=== PATIENT | female | born 1955 | race Two or more races ===

== ENCOUNTER 2016-10-03 23:05 | Inpatient (IN) | payer MEDICAID ==
[~2016-10-03] VITALS: Ht 157.5 cm; Wt 77.1 kg
[2016-10-03] MEDS ORDERED: ALBUTEROL SULFATE 2.5 MG/3 ML NEBU NEB ONE (23:45)
[2016-10-03] MEDS ORDERED: predniSONE 50 MG TABLET PO ONE (23:45)
[2016-10-03] MEDS ORDERED: IPRATROPIUM BROMIDE 0.5 MG/2.5 ML NEBU NEB ONE (23:45)
[2016-10-03] MEDS ORDERED: predniSONE 50 MG TABLET ONE (23:54)
[2016-10-03] MEDS ORDERED: ALBUTEROL SULFATE 2.5 MG/ 0.5 ML NEBU ONE (23:59)
[2016-10-03] MEDS ORDERED: IPRATROPIUM BROMIDE 0.5 MG/2.5 ML NEBU ONE (23:59)
[2016-10-04 01:34] LABS: ABG BASE EXCESS 4.2 mmol/L; ABG PCO2 49.8 mmHg (35.0-45.0); ABG PH 7.398 (7.350-7.450); ABG PO2 56.2 mmHg (75.0-100.0); ABG SITE RIGHT RADIAL; ABG TOTAL HEMOGLOBIN 13.4 G/dL (12.0-16.0); MetHb 0.5 % (0.0-1.5); O2Hb 89.5 % (94.0-97.0); VENT MODE Room Air
[2016-10-04 02:09] LABS: EOSINOPHILS # (AUTO) 0.2 K/uL (0.0-0.7); EOSINOPHILS % (AUTO) 1.4 % (0.0-7.0); HEMOGLOBIN 13.9 g/dL (10.9-14.3); LYMPHOCYTES # (AUTO) 0.8 K/uL (20.0-40.0); MEAN CORPUSCULAR HEMOGLOBIN 28.9 uug (24.7-32.8); MEAN CORPUSCULAR HGB CONC 36 g/dL (32.3-35.6); MONOCYTES # (AUTO) 0.4 K/uL (2.0-10.0); MONOCYTES % (AUTO) 3.3 % (0.0-11.0); NEUTROPHILS # (AUTO) 9.7 K/uL (1.8-8.9); NEUTROPHILS % (AUTO) 88.3 % (38.5-71.5); PLATELET COUNT (AUTO) 301 K/uL (179-408); RED BLOOD CELL COUNT(AUTO) 4.81 MIL/uL (3.63-4.92); RED CELL DISTRIBUTION WIDTH 13.5 % (12.3-17.7); WHITE BLOOD COUNT (AUTO) 11.1 K/uL (3.8-11.8)
[2016-10-04 02:14] LABS: CALCIUM 8.9 mg/dL (8.5-10.1); CREATININE 0.8 mg/dL (0.6-1.3)
[2016-10-04] MEDS ORDERED: IV NORMAL SALINE 250 ML IV ONE (02:45)
[2016-10-04] MEDS ORDERED: IOHEXOL 350 100 ML INFUS..BTL ONE (02:45)
[2016-10-04] MEDS ORDERED: IPRATROPIUM BROMIDE 0.5 MG/2.5 ML NEBU NEB ONE (04:00)
[2016-10-04] MEDS ORDERED: ALBUTEROL SULFATE 2.5 MG/3 ML NEBU NEB ONE (04:00)
[2016-10-04] MEDS: methylPREDNISolone SOD SUCC 125 MG/2 ML VIAL IV ONE (04:09)
[2016-10-04] MEDS ORDERED: methylPREDNISolone SOD SUCC 125 MG/2 ML VIAL ONE (04:09)
[2016-10-04] MEDS ORDERED: IPRATROPIUM BROMIDE 0.5 MG/2.5 ML NEBU ONE (04:14)
[2016-10-04] MEDS ORDERED: ALBUTEROL SULFATE 2.5 MG/ 0.5 ML NEBU ONE (04:15)
[2016-10-04] MEDS ORDERED: IV NS 1000 ML 1,000 ML IV PRN (05:16)
[2016-10-04] MEDS ORDERED: IPRATROPIUM BROMIDE 0.5 MG/2.5 ML NEBU NEB PRN (05:30)
[2016-10-04] MEDS ORDERED: MAGNESIUM HYDROXIDE 30 ML LIQUID UDC PO PRN (05:30)
[2016-10-04] MEDS ORDERED: ONDANSETRON 4 MG/2 ML VIAL IV PRN (05:30)
[2016-10-04] MEDS ORDERED: ALBUTEROL SULFATE 2.5 MG/ 0.5 ML NEBU NEB PRN (05:30)
[2016-10-04] MEDS ORDERED: ACETAMINOPHEN 325 MG TABLET PO PRN (05:30)
--- NOTE | 2016-10-04 06:23 | NUR ---
Pt. admitted to TELE, under care of Dr. Berry Belongs List completed
[2016-10-04 06:33] VITALS: BP 144/74
--- NOTE | 2016-10-04 06:42 | NUR ---
RECEIVED PT FROM ER BIB STAFF VIA SUSANNA, IN NO ACUTE DISTRESS. PT DIVEHI SPEAKING ONLY, A/OX4. DENIES ANY PAIN AT THIS TIME. DENIES CHEST PAIN, NAUSEA AND VOMITING. NO SOB REPORTED AT THIS TIME. AMBULATED TO BED, IN SLOW STEADY GAIT. VS STABLE. PLACED IN ROOM 204. MADE COMFORTABLE. ON TELE, SR ON THE MONITOR HR [id number]. WILL ENDORSE COMPLETION OF ADMISSION TO INCOMING NURSE.
[2016-10-04] MEDS: PANTOPRAZOLE SODIUM 40 MG TABLET.DR PO SCH (10:01)
[2016-10-04 10:30] LABS: BASOPHILS % (AUTO) 0.1 % (0.0-2.0); HEMATOCRIT 41.2 % (31.2-41.9); HEMOGLOBIN 14.1 g/dL (10.9-14.3); LYMPHOCYTES # (AUTO) 0.6 K/uL (20.0-40.0); LYMPHOCYTES % (AUTO) 5.3 % (20.5-51.5); MEAN CORPUSCULAR HEMOGLOBIN 27.8 uug (24.7-32.8); MEAN CORPUSCULAR HGB CONC 34 g/dL (32.3-35.6); MEAN CORPUSCULAR VOLUME 81.3 fL (75.5-95.3); MONOCYTES # (AUTO) 0.1 K/uL (2.0-10.0); MONOCYTES % (AUTO) 1.3 % (0.0-11.0); NEUTROPHILS # (AUTO) 9.8 K/uL (1.8-8.9); NEUTROPHILS % (AUTO) 93.3 % (38.5-71.5); PLATELET COUNT (AUTO) 307 K/uL (179-408); RED BLOOD CELL COUNT(AUTO) 5.07 MIL/uL (3.63-4.92); RED CELL DISTRIBUTION WIDTH 13.4 % (12.3-17.7); WHITE BLOOD COUNT (AUTO) 10.5 K/uL (3.8-11.8)
[2016-10-04 10:45] LABS: ALBUMIN 3.3 g/dL (3.4-5.0); BILIRUBIN,TOTAL 0.5 mg/dL (0.2-1.0); CALCIUM 8.9 mg/dL (8.5-10.1); MAGNESIUM 2.1 mg/dL (1.8-2.4); PHOSPHOROUS 2.7 mg/dL (2.5-4.9); POTASSIUM 3.5 mmol/L (3.5-5.1); TOTAL PROTEIN, SERUM 7.5 g/dL (6.4-8.2)
[2016-10-04 10:52] LABS: THYROID STIMULATING HORMONE 0.318 mIU/mL (0.358-3.740)
[2016-10-04] MEDS ORDERED: DEXTROSE 50% 50 ML DISP.SYRIN IV PRN (11:30)
[2016-10-04] MEDS ORDERED: METFORMIN HCL 500 MG TABLET PO SCH (11:30)
[2016-10-04 11:32] VITALS: BP 128/71
[2016-10-04] MEDS: BLOOD SUGAR DIAGNOSTIC 1 EACH STRIP VI SCH ×3 (12:40→21:45)
[2016-10-04] MEDS: GLIMEPIRIDE 2 MG TABLET PO SCH (12:46)
[2016-10-04] MEDS: INSULIN REGULAR, HUMAN 300 UNIT/3 ML VIAL SQ PRN ×3 (12:54→21:52)
[2016-10-04] MEDS: methylPREDNISolone SOD SUCC 40 MG/ML VIAL IV SCH ×2 (14:00→21:52)
[2016-10-04 14:01] LABS: *BILIRUBIN,URIN NEGATIVE (NEGATIVE); *BLOOD, URINE Trace-lysed (NEGATIVE); *COLOR,URINE YELLOW (YELLOW); *KETONES,URINE NEGATIVE (NEGATIVE); *PROTEIN,URINE NEGATIVE (NEGATIVE); *UROBILINOGEN,URINE 0.2 E.U./dl (NORMAL); LEUKOCYTE ESTERASE ,URINE NEGATIVE (NEGATIVE); NITRITE, URINE NEGATIVE (NEGATIVE)
[2016-10-04 14:33] LABS: UGLUCOSE 2+ (NEGATIVE)
[2016-10-04 14:34] LABS: *CLARITY,URINE SLIGHTLY HAZY (CLEAR)
[2016-10-04 14:37] LABS: SQUAMOUS EPITHELIAL CELL,UR MODERATE /HPF (NONE SEEN); WBC,URINE 0-3 /HPF (0-3)
[2016-10-04 15:39] VITALS: BP 137/67
[2016-10-04] MEDS ORDERED: ALBU8HFA4 PO (17:07)
[2016-10-04] MEDS ORDERED: BLOOD PRESSURE PILL (17:07)
[2016-10-04] MEDS ORDERED: ASPI-612 PO (17:07)
--- NOTE | 2016-10-04 17:22 | NUR ---
PATIENT TURKISH SPEAKING ONLY WITH TRANSLATION DONE SHE DENIES ANY SOB OR CHEST PAIN THIS SHIFT SHE IS SINUS RHYTHM ON MONITOR.PATIENT BEING MONITORED FOR BLOOD GLUCOSE AFTER SERUM CAME BACK 328 , ACCUCHECKS WITH SS COVERAGE OF REGULAR INSULIN NO S/S OF GLYCEMIC REACTION. at bedside with call light in reach and side rails up ti,tracy two
[2016-10-04 20:00] VITALS: BP 143/67
[2016-10-04 23:47] VITALS: BP 129/63
[2016-10-05 04:00] VITALS: BP 131/63
[2016-10-05 06:57] LABS: EOSINOPHILS # (AUTO) 0.1 K/uL (0.0-0.7); EOSINOPHILS % (AUTO) 0.8 % (0.0-7.0); HEMATOCRIT 39.6 % (31.2-41.9); HEMOGLOBIN 13.5 g/dL (10.9-14.3); LYMPHOCYTES # (AUTO) 0.9 K/uL (20.0-40.0); LYMPHOCYTES % (AUTO) 6.5 % (20.5-51.5); MEAN CORPUSCULAR HGB CONC 34 g/dL (32.3-35.6); MEAN CORPUSCULAR VOLUME 81.9 fL (75.5-95.3); MONOCYTES # (AUTO) 0.5 K/uL (2.0-10.0); MONOCYTES % (AUTO) 3.4 % (0.0-11.0); NEUTROPHILS # (AUTO) 12.7 K/uL (1.8-8.9); NEUTROPHILS % (AUTO) 89.3 % (38.5-71.5); PLATELET COUNT (AUTO) 358 K/uL (179-408); RED BLOOD CELL COUNT(AUTO) 4.83 MIL/uL (3.63-4.92); RED CELL DISTRIBUTION WIDTH 13.5 % (12.3-17.7); WHITE BLOOD COUNT (AUTO) 14.2 K/uL (3.8-11.8)
[2016-10-05] MEDS: methylPREDNISolone SOD SUCC 40 MG/ML VIAL IV SCH ×2 (07:04→21:00)
[2016-10-05] MEDS: PANTOPRAZOLE SODIUM 40 MG TABLET.DR PO SCH (07:04)
[2016-10-05] MEDS: BLOOD SUGAR DIAGNOSTIC 1 EACH STRIP VI SCH ×4 (07:05→20:38)
[2016-10-05 07:08] LABS: ALBUMIN 3.1 g/dL (3.4-5.0); BILIRUBIN,TOTAL 0.5 mg/dL (0.2-1.0); CALCIUM 8.9 mg/dL (8.5-10.1); CREATININE 0.8 mg/dL (0.6-1.3); MAGNESIUM 2.4 mg/dL (1.8-2.4); PHOSPHOROUS 4.2 mg/dL (2.5-4.9); POTASSIUM 3.4 mmol/L (3.5-5.1); TOTAL PROTEIN, SERUM 7.1 g/dL (6.4-8.2)
[2016-10-05] MEDS: INSULIN REGULAR, HUMAN 300 UNIT/3 ML VIAL SQ PRN ×3 (07:21→17:16)
[2016-10-05 07:24] LABS: THYROID STIMULATING HORMONE 0.221 mIU/mL (0.358-3.740)
--- NOTE | 2016-10-05 07:51 | NUR ---
PT SLEEPING WELL OVERNIGHT STILL SWEATY BUT FINGERSTICK IS 204MG/DL THIS AM. PAIN IN LOWER ABDOMEN TOLERABLE PER PT "COMES AND GO" PER DAUGHTER'S TRANSLATION VSS,AFEBRILE ,KEPT ON OXYGEN FOR SPO2 91% AT ROOM AIR AFTER BREATHING TREATMENT.NO ACUTE DISTRESS.CALL LIGHT AT REACHED.
[2016-10-05] MEDS: GLIMEPIRIDE 2 MG TABLET PO SCH (08:07)
[2016-10-05] MEDS ORDERED: DEXTROSE 50% 50 ML DISP.SYRIN IV PRN (09:45)
[2016-10-05] MEDS ORDERED: INSULIN REGULAR, HUMAN 300 UNITS/3 ML VIAL SQ PRN (09:45)
[2016-10-05] MEDS ORDERED: POTASSIUM CHLORIDE 20 MEQ TAB.PRT.SR PO ONE (09:45)
[2016-10-05 10:59] LABS: LYMPHOCYTES % (MANUAL) 7 % (20-40); MONOCYTES % (MANUAL) 2 % (2-10); NEUTROPHILS % (MANUAL) 91 % (42-75)
[2016-10-05 11:00] LABS: PLATELET ESTIMATE ADEQUATE
[2016-10-05 11:40] VITALS: BP 136/66
[2016-10-05 15:55] VITALS: BP 140/67
--- NOTE | 2016-10-05 18:29 | NUR ---
PATIENT IN BED RESTING. NO S/S OF DISTRESS NOTED. DENIED PAIN DURING MY SHIFT. AT THE BEDSIDE. GOOD APPETITE. BS CONTROLLED. NC 2L MAINTAINED. V/N WNL. SAFETY AND COMFORT PROVIDED BY STAFF. WILL CONTINUE MONITORING.
--- NOTE | 2016-10-05 20:00 | NUR ---
RECEIVED PATIENT AWAKE IN BED WITH FAMILY AT BEDSIDE. PATIENT IS A/O X4, CYMRAES SPEAKING BUT ABLE TO MAKE NEEDS KNOWN. PATIENT DENIES PAIN OR DISCOMFORT. NO RESP. DISTRESS NOTED. HEPLOCK INTACT AND PATENT, NOTED TO RIGHT FA. CALL LIGHT IN REACH. ALL NEEDS ATTENDED. WILL CONTINUE TO MONITOR.
[2016-10-05 20:27] VITALS: BP 138/78
--- NOTE | 2016-10-05 20:35 | NUR ---
PATIENT ON O2 2L NC SATING 95%. REMOVED AND WILL CHECK PATIENT ON RA.
[2016-10-05] MEDS: ATORVASTATIN 10 MG TABLET PO SCH (20:41)
--- NOTE | 2016-10-05 21:00 | NUR ---
PATIENT ON RA SATING 88-89%. PATIENT PLACED BACK ON O2 2L NC. WILL CONTINUE TO MONITOR.
[2016-10-05] MEDS: GUAIFENESIN/CODEINE 5 ML LIQUID UDC PO PRN (22:56)
[2016-10-05] MEDS ORDERED: GUAIFENESIN/CODEINE 5 ML LIQUID UDC ONE (23:04)
--- NOTE | 2016-10-05 23:05 | NUR ---
PATIENT GIVEN ROBITUSSIN AC 10ML PO PRN FOR COUGH.
[2016-10-06 05:06] VITALS: BP 137/74
[2016-10-06] MEDS: PANTOPRAZOLE SODIUM 40 MG TABLET.DR PO SCH (06:05)
[2016-10-06] MEDS: BLOOD SUGAR DIAGNOSTIC 1 EACH STRIP VI SCH ×4 (06:31→20:25)
--- NOTE | 2016-10-06 06:39 | NUR ---
PATIENT RESTING IN BED. SLEPT WELL THROUGHOUT THE NIGHT. VSS. NO RESP. DISTRESS NOTED. CONTINUED ON O2 2L NC. CALL LIGHT IN REACH. ALL NEEDS ATTENDED. WILL CONTINUE TO MONITOR.
[2016-10-06 07:47] LABS: EOSINOPHILS % (AUTO) 0.2 % (0.0-7.0); HEMATOCRIT 38.3 % (31.2-41.9); HEMOGLOBIN 13.2 g/dL (10.9-14.3); LYMPHOCYTES # (AUTO) 1.2 K/uL (20.0-40.0); LYMPHOCYTES % (AUTO) 7.8 % (20.5-51.5); MEAN CORPUSCULAR HEMOGLOBIN 28.2 uug (24.7-32.8); MEAN CORPUSCULAR HGB CONC 35 g/dL (32.3-35.6); MEAN CORPUSCULAR VOLUME 81.7 fL (75.5-95.3); MONOCYTES # (AUTO) 0.7 K/uL (2.0-10.0); MONOCYTES % (AUTO) 4.4 % (0.0-11.0); NEUTROPHILS % (AUTO) 87.6 % (38.5-71.5); PLATELET COUNT (AUTO) 318 K/uL (179-408); RED BLOOD CELL COUNT(AUTO) 4.69 MIL/uL (3.63-4.92); RED CELL DISTRIBUTION WIDTH 13.7 % (12.3-17.7); WHITE BLOOD COUNT (AUTO) 14.9 K/uL (3.8-11.8)
[2016-10-06] MEDS: INSULIN REGULAR, HUMAN 300 UNIT/3 ML VIAL SQ PRN ×3 (07:49→16:42)
[2016-10-06] MEDS: GLIMEPIRIDE 2 MG TABLET PO SCH (08:06)
[2016-10-06] MEDS: methylPREDNISolone SOD SUCC 40 MG/ML VIAL IV SCH ×2 (08:07→20:42)
[2016-10-06 08:57] LABS: BILIRUBIN,TOTAL 0.4 mg/dL (0.2-1.0); CALCIUM 8.5 mg/dL (8.5-10.1); CREATININE 0.8 mg/dL (0.6-1.3); MAGNESIUM 2.4 mg/dL (1.8-2.4); PHOSPHOROUS 4.2 mg/dL (2.5-4.9); POTASSIUM 4.2 mmol/L (3.5-5.1); TOTAL PROTEIN, SERUM 6.8 g/dL (6.4-8.2)
[2016-10-06] MEDS ORDERED: ALBUTEROL SULFATE 2.5 MG/ 0.5 ML NEBU NEB PRN (12:00)
[2016-10-06] MEDS ORDERED: IPRATROPIUM BROMIDE 0.5 MG/2.5 ML NEBU NEB PRN (12:00)
[2016-10-06] MEDS ORDERED: POTASSIUM CHLORIDE 20 MEQ TAB.PRT.SR PO ONE (12:15)
[2016-10-06] MEDS ORDERED: LEVOFLOXACIN 750MG/D5W 750 MG in PREMIXED 1 EACH IV SCH (14:00)
[2016-10-06] MEDS: IPRATROPIUM BROMIDE 0.5 MG/2.5 ML NEBU NEB SCH ×2 (14:43→19:26)
[2016-10-06] MEDS: ALBUTEROL SULFATE 2.5 MG/ 0.5 ML NEBU NEB SCH ×2 (14:43→19:26)
[2016-10-06 15:22] VITALS: BP 133/74
--- NOTE | 2016-10-06 18:14 | NUR ---
PATIENT BEEN IN BED RESTING DURING THE DAY, WATCHING TV. FAMILY MEMBERS AT THE BEDSIDE. NO S/S OF DISTRESS NOTED. DENIED PAIN. O2 SAT WITHOUT OXYGEN 90%-95% ON REST, ON ACTIVITY O2 SAT DROPPED TO 85, ASYMPTOMATIC. DR. OATES AND ADDIS FRANKEL AWARE. PATIENT STAYING ONE MORE NIGHT FOR MONITORING. PATIENT HAVE BEEN HAVING BREATHING TREATMENT, STATING THAT HELPS HER WITH THE COUGH AND BREATHING. BS CONTROLLED. SPUTUM SPECIMEN COLLECTED AND SENT TO LAB. SAFETY AND COMFORT PROVIDED BY STAFF. WILL CONTINUE MONITORING.
[2016-10-06 19:00] VITALS: BP 153/85
[2016-10-06] MEDS: GUAIFENESIN/CODEINE 5 ML LIQUID UDC PO PRN (20:25)
[2016-10-06] MEDS: ATORVASTATIN 10 MG TABLET PO SCH (20:25)
--- NOTE | 2016-10-06 20:25 | NUR ---
PATIENT AWAKE IN BED. A/O X4. KINYARWANDA SPEAKING BUT ABLE TO MAKE NEEDS KNOWN. PATIENT ASKING FOR COUGH MEDICINE. PATIENT GIVEN ROBITUSSIN AC 10ML PO PRN FOR COUGH. VSS. ON RA SATING 93%. DENIES ANY SOB. CALL LIGHT IN REACH. ALL NEEDS ATTENDED. WILL CONTINUE TO MONITOR .
[2016-10-07] MEDS: ALBUTEROL SULFATE 2.5 MG/ 0.5 ML NEBU NEB SCH ×3 (00:44→13:47)
[2016-10-07] MEDS: IPRATROPIUM BROMIDE 0.5 MG/2.5 ML NEBU NEB SCH ×3 (00:44→13:47)
[2016-10-07 04:00] VITALS: BP 143/74
--- NOTE | 2016-10-07 06:00 | NUR ---
PATIENT AWAKE IN BED. SLEPT WELL THROUGHOUT THE NIGHT. VSS. PATIENT DENIES OR DISCOMFORT. VSS. CALL LIGHT IN REACH. ALL NEEDS ATTENDED. WILL CONTINUE TO MONITOR.
[2016-10-07] MEDS: PANTOPRAZOLE SODIUM 40 MG TABLET.DR PO SCH (06:28)
[2016-10-07] MEDS: BLOOD SUGAR DIAGNOSTIC 1 EACH STRIP VI SCH ×2 (06:33→12:07)
[2016-10-07 06:59] LABS: ALBUMIN 2.9 g/dL (3.4-5.0); BILIRUBIN,TOTAL 0.4 mg/dL (0.2-1.0); CALCIUM 8.6 mg/dL (8.5-10.1); CREATININE 0.7 mg/dL (0.6-1.3); MAGNESIUM 2.4 mg/dL (1.8-2.4); PHOSPHOROUS 3.9 mg/dL (2.5-4.9); POTASSIUM 4.4 mmol/L (3.5-5.1); TOTAL PROTEIN, SERUM 6.7 g/dL (6.4-8.2)
[2016-10-07 07:14] LABS: EOSINOPHILS % (AUTO) 0.3 % (0.0-7.0); HEMATOCRIT 39.2 % (31.2-41.9); HEMOGLOBIN 13.5 g/dL (10.9-14.3); LYMPHOCYTES # (AUTO) 1.1 K/uL (20.0-40.0); LYMPHOCYTES % (AUTO) 7.7 % (20.5-51.5); MEAN CORPUSCULAR HEMOGLOBIN 28.3 uug (24.7-32.8); MEAN CORPUSCULAR HGB CONC 34 g/dL (32.3-35.6); MEAN CORPUSCULAR VOLUME 82.2 fL (75.5-95.3); MONOCYTES # (AUTO) 0.4 K/uL (2.0-10.0); NEUTROPHILS # (AUTO) 12.6 K/uL (1.8-8.9); PLATELET COUNT (AUTO) 339 K/uL (179-408); RED BLOOD CELL COUNT(AUTO) 4.77 MIL/uL (3.63-4.92); RED CELL DISTRIBUTION WIDTH 13.6 % (12.3-17.7); WHITE BLOOD COUNT (AUTO) 14.1 K/uL (3.8-11.8)
[2016-10-07] MEDS: methylPREDNISolone SOD SUCC 40 MG/ML VIAL IV SCH (08:12)
[2016-10-07] MEDS: GLIMEPIRIDE 2 MG TABLET PO SCH (08:12)
[2016-10-07] MEDS: INSULIN REGULAR, HUMAN 300 UNIT/3 ML VIAL SQ PRN ×2 (08:14→12:09)
[2016-10-07 08:41] LABS: LYMPHOCYTES % (MANUAL) 12 % (20-40); MONOCYTES % (MANUAL) 1 % (2-10); NEUTROPHILS % (MANUAL) 78 % (42-75)
[2016-10-07 08:42] LABS: BAND % (MANUAL) 9 % (0-10)
[2016-10-07 08:43] LABS: PLATELET ESTIMATE ADEQUATE
[2016-10-07] MEDS ORDERED: AMLODIPINE 5 MG TABLET PO SCH (10:00)
[2016-10-07 11:45] VITALS: BP 142/68
[2016-10-07] MEDS ORDERED: LEVOFLOXACIN 750 MG TABLET PO SCH (11:45)
[2016-10-07] MEDS ORDERED: FLUTICASONE/SALMETEROL 250/50 INHALER INH SCH (11:45)
[2016-10-07] MEDS ORDERED: Prednisone PO ×2 (11:57)
[2016-10-07] MEDS ORDERED: GLIM2TAB PO (11:57)
[2016-10-07] MEDS ORDERED: FLUT1DIS28 INH (11:57)
[2016-10-07] MEDS ORDERED: ALBU2.5V13 NEB ×2 (11:57)
[2016-10-07] MEDS ORDERED: ATOR10TA PO (11:57)
[2016-10-07] MEDS ORDERED: PRED-170 PO (11:57)
[2016-10-07] MEDS ORDERED: LEVO750T21 PO (11:57)
[2016-10-07] MEDS ORDERED: AMLO5TAB2 PO (11:57)
[2016-10-07] MEDS ORDERED: GUAI5SYR4 PO (11:57)
[2016-10-07] MEDS ORDERED: Blood Sugar Diagnostic VI (11:57)
[2016-10-07] MEDS ORDERED: IPRA0.2S6 NEB ×2 (11:57)
--- NOTE | 2016-10-07 12:55 | NUR ---
The patient will be discharged today back home [[id number] [facility] [address], [place] [address]] per Glenna Portillo NP. She is in agreement with her discharge plan and arranged for her daughters to pick her up via private car. Brittany Hernandez CNA provided translation for the patient. This upper stitcher provided the patient with drug discount cards to help with medication coverage. Her RN, [place] is aware of her discharge plan.
--- NOTE | 2016-10-07 14:00 | NUR ---
Discharge instructions given to pt by using tire center manager. Discussed new medications it purpose and side effects. Diabetic education given to pt re: finger stick (pt aware of alternating sites and not to poke middle of finger but its sides) s/s of hyperglycemia and hypoglycemia, purpose of having good bs and consequences on an uncontrolled bs, and what to eat for diabetic pts. Pt very active on listening and verbalized understanding. Pt denies further education from pharmacist. Prescription given to pt and daughter. Instructed to f/u with PMD within 1 week and bring their d/c instructions with the new list of medications that pt is taking - pt verbalized understanding. IV d/c. Gave [facility]N tx per pt request prior to d/c. Pt is in o acute distress upon discharge. Pt to f/u with pmd re: vaccinations PNM and flu
[2016-10-08] MEDS ORDERED: predniSONE 20 MG TABLET PO SCH (08:00)
[2016-10-11] MEDS ORDERED: predniSONE 10 MG TABLET PO SCH (09:00)
[2016-10-13] MEDS ORDERED: predniSONE 5 MG TABLET PO SCH (09:00)
== END 2016-10-07 14:00 | disposition home or self-care (01) | DRG 141 ==
LOC: ER 23:14 → TELE 10-04 05:50 → MED 10-05 12:45
PROVIDERS: ADMIT Nurse Practitioner Acute Care; ATTEND Internal Medicine
DX: J45.901 Unspecified asthma with (acute) exacerbation (principal); J96.01 Acute respiratory failure with hypoxia; J84.10 Pulmonary fibrosis, unspecified; I11.9 Hypertensive heart disease without heart failure; E11.65 Type 2 diabetes mellitus with hyperglycemia; N39.0 Urinary tract infection, site not specified; E87.6 Hypokalemia; E78.5 Hyperlipidemia, unspecified; E66.9 Obesity, unspecified; Z68.31 Body mass index [BMI] 31.0-31.9, adult; E88.09 Other disorders of plasma-protein metabolism, not elsewhere classified; T38.0X5A Adverse effect of glucocorticoids and synthetic analogues, initial encounter; Y92.89 Other specified places as the place of occurrence of the external cause; Z87.2 Personal history of diseases of the skin and subcutaneous tissue; F41.8 Other specified anxiety disorders; T59.811A Toxic effect of smoke, accidental (unintentional), initial encounter; J70.5 Respiratory conditions due to smoke inhalation; J06.9 Acute upper respiratory infection, unspecified; Z87.828 Personal history of other (healed) physical injury and trauma; Z87.440 Personal history of urinary (tract) infections; E04.1 Nontoxic single thyroid nodule
CPT/HCPCS: 36415; 36600; 71010; 71275; 82785; 83735; 84100; 84443; 84481; 85025; 85730; 87070; 87086; 94640; A4663; J1815; J1956; J2920; J2930; J3590; J7050; J7512; Q9967